=== PATIENT | male | born 1995 | race Caucasian/White ===

== ENCOUNTER 2016-10-24 16:40 | Emergency (ER) | payer OTHER ==
[2016-10-24 18:48] VITALS: BP 121/74
== END 2016-10-24 18:48 | disposition home or self-care (01) ==
LOC: ED 16:40
DX: S81.852A Open bite, left lower leg, initial encounter (principal); Z88.0 Allergy status to penicillin; W54.0XXA Bitten by dog, initial encounter; Y93.89 Activity, other specified; Y99.8 Other external cause status; Y92.89 Other specified places as the place of occurrence of the external cause
CPT/HCPCS: 90715

== ENCOUNTER 2016-10-27 10:14 | Emergency (ER) | payer OTHER ==
[2016-10-27 12:47] VITALS: BP 131/71
== END 2016-10-27 12:47 | disposition home or self-care (01) ==
LOC: ED 10:14
DX: Z48.00 Encounter for change or removal of nonsurgical wound dressing (principal); Z88.0 Allergy status to penicillin; Z79.899 Other long term (current) drug therapy